=== PATIENT | female | born 1990 | race Hispanic/Latino ===

== ENCOUNTER 2017-10-05 19:54 | Emergency (ER) | payer MEDICARE ==
[~2017-10-05] VITALS: Ht 157.5 cm; Wt 86.2 kg
[2017-10-05 20:47] LABS: BASOPHILS # (AUTO) 0.1 (0.0-0.1); BASOPHILS % 0.6 % (0.0-1.0); EOSINOPHILS # (AUTO) 0.3 (0.0-0.4); EOSINOPHILS % 3.1 % (0.0-6.0); HEMATOCRIT 39.7 % (34.2-44.1); LYMPHOCYTES % 22.1 % (18.0-39.1); MEAN CORPUSCULAR HEMOGLOBIN 28.1 pg (28-32); MEAN CORPUSCULAR HGB CONC 32.7 g/dL (31-35); MEAN CORPUSCULAR VOLUME 85.7 fL (81-99); MONOCYTES # (AUTO) 0.6 (0.2-0.8); MONOCYTES % 6.3 % (4.4-11.3); NEUTROPHILS # (AUTO) 6.1 (2.1-6.9); NEUTROPHILS % 67.6 % (38.7-80.0); PLATELET COUNT 242 x10e3/uL (140-360); RED BLOOD COUNT 4.63 x10e6/uL (3.6-5.1); RED CELL DISTRIBUTION WIDTH 13.9 % (11.7-14.4)
[2017-10-05 20:54] LABS: BILIRUBIN,URINE NEGATIVE (NEGATIVE); CLARITY,URINE CLEAR (CLEAR); COLOR,URINE YELLOW (YELLOW); KETONES,URINE NEGATIVE (NEGATIVE); LEUKOCYTE ESTERASE ,URINE 2+ (NEGATIVE); NITRITE,URINE NEGATIVE (NEGATIVE); PROTEIN,URINE DIPSTICK NEGATIVE (NEGATIVE); URINE UROBILINOGEN 0.2 mg/dL (0.2 - 1)
[2017-10-05 21:00] LABS: PREGNANCY TEST, URINE NEGATIVE (NEGATIVE)
[2017-10-05 21:17] LABS: ALANINE AMINOTRANSFERASE 150 IU/L (0-55); ALBUMIN 3.7 g/dL (3.5-5.0); ALBUMIN/GLOBULIN RATIO 0.8 (0.8-2.0); ALKALINE PHOSPHATASE 133 IU/L (40-150); ANION GAP 15.4 mmol/L (8-16); BLOOD UREA NITROGEN 16 mg/dL (7-26); BUN/CREATININE RATIO 22 (6-25); CALCIUM 9.3 mg/dL (8.4-10.2); CARBON DIOXIDE 19 mmol/L (22-29); CHLORIDE 106 mmol/L (98-107); CREATININE, SERUM 0.74 mg/dL (0.57-1.11); EST GLOMERULAR FILTRATION RATE > 60 ML/MIN (60-); GLUCOSE 99 mg/dL (74-118); POTASSIUM 4.4 mmol/L (3.5-5.1); SODIUM 136 mmol/L (136-145)
[2017-10-05 21:19] LABS: BACTERIA,URINE RARE /HPF; EPITHELIAL CELLS,URINE FEW /LPF; RBC,URINE 0-5 /HPF (0-5); WBC,URINE (MAN) 0-5 /HPF (0-5)
[2017-10-05 21:24] LABS: AMYLASE 63 U/L (25-125); LIPASE 12 U/L (8-78)
[2017-10-05 23:10] VITALS: BP 126/80
== END 2017-10-05 23:17 | disposition home or self-care (01) ==
LOC: ER 19:54
DX: R10.13 Epigastric pain (principal); R11.0 Nausea; K29.20 Alcoholic gastritis without bleeding; R74.0 Nonspecific elevation of levels of transaminase and lactic acid dehydrogenase [LDH]; F17.210 Nicotine dependence, cigarettes, uncomplicated
CPT/HCPCS: 36415; 80053; 81001; 81025; 82150; 83690; 85025; 87086; 99283